=== PATIENT | female | born 1975 | race Caucasian/White ===

== ENCOUNTER 2018-04-04 17:26 | Emergency (ER) | payer MEDICAID ==
--- NOTE | 2018-04-04 18:05 | Emergency Department Record ---
History of Present Illness - General Chief complaint: Extremity Problem Stated complaint: ARM PAIN/POSS BLOOD CLOT Time Seen by Provider: 04/04/18 17:59 Source: Patient Mode of Arrival: Ambulatory Limitations: No limitations - History of Present Illness Initial comments: 43 yo female presents to ED for evaluation of pain and numbness to the right wrist, reports a history or repetitive upper extremity motions at work ( currently on disability). Patient reports that her symptoms have been present for "years", has not seen a PCP in several years. Patient reports pain with wrist movement, denies specific injury or trauma. Patient denies health problems at her baseline, but also reports "I think I have had a UTI for 3-4 weeks". Patient denies fevers, chills, or abdominal pain symptoms. Patient also reports that she has not had a bowel movement in 5 days, denies pain symptoms, but reports "I think I need something to help me go". Complaint: Extremity pain -: Year(s) Location: Right History of Same: Yes -: Yes Arthralgia Radiation: Proximal Quality: Sharp, Stabbing Consistency: Intermittent Improves with: Rest Worsens with: Other (movement of the wrist) - Related Data Previous Rx's Medication Instructions Recorded Ibuprofen 600 mg PO Q6H PRN #30 tablet 04/04/18 Nitrofurantoin Presidio [Macrobid] 100 mg PO BID #14 capsule 04/04/18 Polyethylene Glycol 3350 [Miralax] 1 packet PO DAILY #5 packet 04/04/18 Allergies Allergy/AdvReac Type Severity Reaction Status Date / Time acetaminophen Allergy RASH Verified 04/04/18 17:50 [From Tylenol-Codeine] buspirone [From BuSpar] Allergy RASH Verified 04/04/18 17:50 codeine Allergy RASH Verified 04/04/18 17:50 [From Tylenol-Codeine] Review of Systems Constitutional: Denies: Chills, Fever, Malaise, Night sweats Eyes: Denies: Eye discharge, Eye pain ENT: Denies: Congestion, Ear pain, Epistaxis Respiratory: Denies: Cough, Dyspnea Cardiovascular: Denies: Chest pain, Dyspnea on exertion Endocrine: Denies: Fatigue, Heat or cold intolerance Gastrointestinal: Denies: Abdominal pain, Nausea, Vomiting Genitourinary: Reports: Dysuria. Denies: Incontinence, Retention Musculoskeletal: Reports: Arthralgia. Denies: Back pain, Gout, Joint swelling Skin: Denies: Bruising, Change in color Neurological: Reports: Numbness, Tingling (to the digits distally right). Denies: Abnormal gait, Confusion, Headache Psychiatric: Denies: Anxiety Hematological/Lymphatic: Denies: Anemia, Blood Clots Past Medical History - SOCIAL HISTORY Smoking Status: Current every day smoker - RESPIRATORY Hx Respiratory Disorders: No - CARDIOVASCULAR Hx Cardio Disorders: No - NEURO Hx Neuro Disorders: No - GI Hx Reflux: Yes - Hx Genitourinary Disorders: No - ENDOCRINE Hx Diabetes: No Hx Thyroid Disease: No - MUSCULOSKELETAL Hx Fibromyalgia: Yes - PSYCH Hx Anxiety: Yes Hx Behavior Problems: Yes Comment:: chemical imbalance, bi-polar - HEMATOLOGY/ONCOLOGY Hx Anemia: Yes Hx Cancer: Yes Family Medical History Hx Anxiety: Grandparents Hx Cancer: Brother/Sister, Grandparents Hx Diabetes: Mother, Grandparents Hx Resp Disorders: Grandparents Physical Exam - General General Appearance: Alert, Oriented x3, Cooperative, No acute distress, Other ( drinking water, resting comfortably, well appearing on examination) Limitations: No limitations - Head Head exam: Atraumatic, Normocephalic, Normal inspection Head exam detail: negative: Abrasion, Contusion, Christina's sign, General tenderness, Hematoma, Laceration - Eye Eye exam: Normal appearance. negative: Conjunctival injection, Periorbital swelling, Periorbital tenderness, Scleral icterus - ENT Ear exam: negative: Auricular hematoma, Auricular trauma Nasal Exam: negative: Active bleeding, Discharge, Dried blood, Foreign body Mouth exam: negative: Drooling, Laceration, Muffled voice, Tongue elevation - Neck Neck exam: Normal inspection. negative: Meningismus, Tenderness - Respiratory Respiratory exam: Normal lung sounds bilaterally. negative: Respiratory distress, Rhonchi, Stridor, Wheezes - Cardiovascular Cardiovascular Exam: Regular rate, Normal rhythm, Normal heart sounds Peripheral Pulses: 3+: Radial (R) - GI/Abdominal GI/Abdominal exam: Soft. negative: Pulsatile mass, Rebound, Rigid - Rectal Rectal exam: Deferred - exam: Deferred - Extremities Extremities exam: Tenderness, Other (Tinels/phalens tests are positive on examination, strong distal radial pulse, compartments of the forearm are soft on examination. No STS or edema are present to suggest DVT. Tabulating Machine Mechanic strength is 4+ right (limited by pain per patient).). negative: Calf tenderness, Pedal edema - Back Back exam: Denies: CVA tenderness (R), CVA tenderness (L) - Neurological Neurological exam: Alert, Normal gait, Oriented X3 - Psychiatric Psychiatric exam: Normal affect, Normal mood - Skin Skin exam: Normal color. negative: Abrasion Type of lesion: negative: abrasion Course - Reevaluation(s) Reevaluation #1: 04/04/18 18:26 Patient's examination appears c/w CTS, will prescribe Ibuprofen 600 mg as directed with velcro wrist splint. UA reviewed: 4+ Bacteria 21-25 RBCs Will also initiate treatment with Macrobid as directed for UTI symptoms. Patient was instructed to establish with a PCP for further evaluation of her wrist pain symptoms as well. Disposition Disposition: Discharge Clinical Impression: Carpal tunnel syndrome Qualifiers: Laterality: right Qualified Code(s): G56.01 - Carpal tunnel syndrome, right upper limb UTI (urinary tract infection) Qualifiers: Urinary tract infection type: acute cystitis Hematuria presence: with hematuria Qualified Code(s): N30.01 - Acute cystitis with hematuria Constipation Qualifiers: Constipation type: unspecified constipation type Qualified Code(s): K59.00 - Constipation, unspecified Disposition: Home, Self-Care Condition: (2) Stable Instructions: Paresthesia (ED) Additional Instructions: Return to ED if your symptoms worsen or if you have any concerns. Ibuprofen, Macrobid, Miralax, and wrist splint as directed. Establish with a primary care provider in the next 3-5 days as directed for further evaluation. Prescriptions: Ibuprofen 600 mg PO Q6H PRN #30 tablet PRN Reason: Pain - Moderate (5-7) Nitrofurantoin Presidio [Macrobid] 100 mg PO BID #14 capsule Polyethylene Glycol 3350 [Miralax] 1 packet PO DAILY #5 packet Forms: Patient Portal Access Time of Disposition: 18:30 Quality - Quality Measures Quality Measures: N/A - Blood Pressure Screening Does Patient Have Any of the Following: No Blood Pressure Classification: Pre-Hypertensive BP Reading Systolic Measurement: 114 Diastolic Measurement: 80 Screening for High Blood Pressure: < Pre-Hypertensive BP, F/U Documented > [ G8950] Pre-Hypertensive Follow-up Interventions: Referral to alternative/primary care provider.
[2018-04-04 18:19] LABS: URINE APPEARANCE SL CLOUDY; URINE BILIRUBIN NEGATIVE (NEGATIVE); URINE BLOOD MODERATE (NEGATIVE); URINE COLOR YELLOW; URINE GLUCOSE (UA) NEGATIVE (NEGATIVE); URINE KETONE NEGATIVE (NEGATIVE); URINE LEUKOCYTE ESTERASE SMALL (NEGATIVE); URINE NITRITE POSITIVE (NEGATIVE); URINE PROTEIN NEGATIVE (NEGATIVE)
[2018-04-04 18:25] LABS: URINE BACTERIA 4+; URINE EPITHELIAL CELLS 0 - 2 (FEW); URINE WBC 21 - 35 (0-2/hpf)
== END 2018-04-04 19:06 | disposition home or self-care (01) ==
LOC: ER 17:26
DX: G56.01 Carpal tunnel syndrome, right upper limb (principal); N30.01 Acute cystitis with hematuria; K59.00 Constipation, unspecified; F17.210 Nicotine dependence, cigarettes, uncomplicated
CPT/HCPCS: 81001; 99283; 99284